=== PATIENT | male | born 1955 | race Caucasian/White ===

== ENCOUNTER 2018-04-11 11:13 | Emergency (ER) | payer MEDICARE ==
[~2018-04-11] VITALS: Ht 170.2 cm; Wt 69.0 kg
[2018-04-11 11:17] VITALS: BP 130/82
[2018-04-11] MEDS ORDERED: HYDROcodone/APAP 5/325 TABLET ONE (12:08)
[2018-04-11] MEDS ORDERED: KETOROLAC 30 MG/1 ML ONE (12:08)
[2018-04-11 12:28] LABS: BASOPHILS # (AUTO) 0.13 x10^3/uL (0-0.1); BASOPHILS % (AUTO) 1 % (0-1); EOSINOPHILS # (AUTO) 0.28 x10^3/uL (0-0.4); EOSINOPHILS % (AUTO) 3 % (1-7); LYMPHOCYTES % (AUTO) 28 % (22-44); MD NO; MEAN CORPUSCULAR HEMOGLOBIN 32.7 pg (27.5-34.5); MEAN CORPUSCULAR HGB CONC 34.7 g/dL (33.2-36.2); MEAN CORPUSCULAR VOLUME 94.5 fL (81-97); MEAN PLATELET VOLUME 8.2 fL (7.4-10.4); MONOCYTES # (AUTO) 0.67 x10^3/uL (0.2-0.8); MONOCYTES % (AUTO) 6 % (2-9); NEUTROPHILS # (AUTO) 6.59 x10^3/uL (1.8-6.8); NEUTROPHILS % (AUTO) 62 % (42-75); PLATELET COUNT 376 x10^3/uL (130-400); RED CELL DISTRIBUTION WIDTH 13.5 % (9.4-14.8)
[2018-04-11] MEDS ORDERED: KETOROLAC 30 MG/1 ML IM ONE (12:30)
[2018-04-11] MEDS ORDERED: HYDROcodone/APAP 5/325 TABLET PO PRN (12:30)
[2018-04-11 12:40] LABS: ALBUMIN 3.8 g/dL (3.4-5.0); ANION GAP 9 mmol/L (5-15); CALCIUM 8.4 mg/dL (8.5-10.1); CHLORIDE 108 mmol/L (98-107); CREATININE 1.17 mg/dL (0.7-1.3)
== END 2018-04-11 13:36 | disposition home or self-care (01) ==
LOC: ED 13:14
DX: M13.172 Monoarthritis, not elsewhere classified, left ankle and foot (principal); M10.072 Idiopathic gout, left ankle and foot; F17.200 Nicotine dependence, unspecified, uncomplicated
CPT/HCPCS: 36415; 73630; 80048; 82040; 84550; 85025; 96372; 99285; J1885

== ENCOUNTER 2019-01-17 11:19 | Emergency (ER) | payer SELFPAY ==
[~2019-01-17] VITALS: Ht 170.2 cm; Wt 65.0 kg
--- NOTE | 2019-01-17 11:27 | NUR ---
PT NIL WHEN CALLED TO TRIAGE.
[2019-01-17 11:33] VITALS: BP 180/82
[2019-01-17] MEDS ORDERED: DIAZEPAM 5 MG TABLET PO ONE (12:00)
[2019-01-17] MEDS ORDERED: KETOROLAC 30 MG/1 ML IM ONE (12:00)
[2019-01-17] MEDS ORDERED: KETOROLAC 30 MG/1 ML ONE (12:05)
[2019-01-17] MEDS ORDERED: DIAZEPAM 5 MG TABLET ONE (12:05)
== END 2019-01-17 13:14 | disposition home or self-care (01) ==
LOC: ED 13:08
DX: S39.012A Strain of muscle, fascia and tendon of lower back, initial encounter (principal); M51.36 Other intervertebral disc degeneration, lumbar region; M19.90 Unspecified osteoarthritis, unspecified site; X58.XXXA Exposure to other specified factors, initial encounter; Y93.89 Activity, other specified; Y92.89 Other specified places as the place of occurrence of the external cause; Y99.8 Other external cause status
CPT/HCPCS: 72110; 96372; 99283; J1885

== ENCOUNTER 2019-01-18 13:08 | Emergency (ER) | payer SELFPAY ==
[~2019-01-18] VITALS: Ht 167.6 cm; Wt 64.1 kg
[2019-01-18 13:11] VITALS: BP 148/96
== END 2019-01-18 13:50 | disposition home or self-care (01) ==
LOC: ED 13:33
DX: M51.36 Other intervertebral disc degeneration, lumbar region (principal); M19.90 Unspecified osteoarthritis, unspecified site; F17.200 Nicotine dependence, unspecified, uncomplicated
CPT/HCPCS: 99283

== ENCOUNTER 2020-08-20 19:50 | Emergency (ER) | payer MEDICAID, MEDICARE ==
[~2020-08-20] VITALS: Ht 172.7 cm; Wt 75.0 kg
--- NOTE | 2020-08-20 20:00 | NUR ---
PT AMINA. PER EMS PT WAS ARRESTED BUT [facility] WOULD NOT ACCEPT HIM D/T BP BEING 192/124 SO THEY CALLED EMS TO BRING HIM HERE. PT STATES HE DID NOT WANT TO COME HERE. PT NO LONGER IN CUSTODY. PT RESTING IN [facility], MONITORING IN PLACE, EKG DONE, NADN AT THIS TIME, WCTM.
[2020-08-20] MEDS ORDERED: hydrALAzine 20 MG/ML, 1ML IV ONE (20:30)
[2020-08-20] MEDS ORDERED: hydrALAzine 20 MG/ML, 1ML ONE (20:39)
[2020-08-20 20:41] LABS: BASOPHILS % (AUTO) 1 % (0-1); EOSINOPHILS % (AUTO) 5 % (1-7); LYMPHOCYTES % (AUTO) 32 % (22-44); MEAN CORPUSCULAR HEMOGLOBIN 32.8 pg (27.5-34.5); MEAN PLATELET VOLUME 8.1 fL (7.4-10.4); MONOCYTES % (AUTO) 9 % (2-9); NEUTROPHILS % (AUTO) 53 % (42-75); PLATELET COUNT 321 x10^3/uL (130-400); RED BLOOD COUNT 4.93 x10^6/uL (4.38-5.82); RED CELL DISTRIBUTION WIDTH 13.5 % (9.4-14.8)
[2020-08-20 20:43] LABS: MD NO
[2020-08-20 20:51] LABS: ALBUMIN 3.6 g/dL (3.4-5.0); ANION GAP 8 mmol/L (5-15); CALCIUM 8.8 mg/dL (8.5-10.1); CHLORIDE 109 mmol/L (98-107); CREATININE 1.07 mg/dL (0.7-1.3)
[2020-08-20 21:49] VITALS: BP 175/109
== END 2020-08-20 22:51 | disposition home or self-care (01) ==
LOC: ED 22:30
DX: I10 Essential (primary) hypertension (principal); Z76.0 Encounter for issue of repeat prescription; R41.82 Altered mental status, unspecified; R94.31 Abnormal electrocardiogram [ECG] [EKG]; F17.210 Nicotine dependence, cigarettes, uncomplicated
CPT/HCPCS: 36415; 80048; 82040; 85025; 93005; 96374; 99284; 99406; J0360

== ENCOUNTER 2020-09-19 09:16 | Emergency (ER) | payer MEDICARE, MEDICAID ==
[~2020-09-19] VITALS: Ht 167.6 cm; Wt 71.0 kg
[2020-09-19] MEDS ORDERED: ALBUTEROL SULFATE 2.5 MG/3 ML NPPB SCH (10:00)
--- NOTE | 2020-09-19 10:01 | NUR ---
PT IS A POOR HISTORIAN. DOES NOT KNOW MEDS HE IS SUPPOSE TO BE ON. AND HAS BEEN A COUPLE YEARS SINCE HAD RX FILLED
[2020-09-19] MEDS ORDERED: ALBUTEROL SULFATE 2.5 MG/3 ML ONE (10:13)
[2020-09-19 10:15] LABS: BASOPHILS % (AUTO) 1 % (0-1); EOSINOPHILS % (AUTO) 3 % (1-7); LYMPHOCYTES % (AUTO) 28 % (22-44); MEAN CORPUSCULAR HEMOGLOBIN 32.8 pg (27.5-34.5); MEAN CORPUSCULAR HGB CONC 34.6 g/dL (33.2-36.2); MEAN PLATELET VOLUME 8.7 fL (7.4-10.4); MONOCYTES % (AUTO) 8 % (2-9); NEUTROPHILS % (AUTO) 60 % (42-75); PLATELET COUNT 366 x10^3/uL (130-400); RED BLOOD COUNT 5.32 x10^6/uL (4.38-5.82); RED CELL DISTRIBUTION WIDTH 13.7 % (9.4-14.8)
[2020-09-19 10:17] LABS: MD NO
[2020-09-19 10:25] LABS: ALBUMIN 4.1 g/dL (3.4-5.0); ANION GAP 6 mmol/L (5-15); CALCIUM 9.3 mg/dL (8.5-10.1); CHLORIDE 109 mmol/L (98-107); CREATININE 1.15 mg/dL (0.7-1.3)
[2020-09-19 11:24] VITALS: BP 158/95
== END 2020-09-19 11:46 | disposition home or self-care (01) ==
LOC: ED 11:40
DX: J06.9 Acute upper respiratory infection, unspecified (principal); J40 Bronchitis, not specified as acute or chronic; Z20.822 Contact with and (suspected) exposure to COVID-19; R94.31 Abnormal electrocardiogram [ECG] [EKG]; I10 Essential (primary) hypertension; M19.90 Unspecified osteoarthritis, unspecified site; F17.210 Nicotine dependence, cigarettes, uncomplicated; Z86.73 Personal history of transient ischemic attack (TIA), and cerebral infarction without residual deficits; Z85.46 Personal history of malignant neoplasm of prostate; Z91.19 Patient's noncompliance with other medical treatment and regimen
CPT/HCPCS: 36415; 71045; 80048; 82040; 83605; 85025; 93005; 94640; 99285; J7512; J7613; U0003